=== PATIENT | female | born 2000 | race Caucasian/White ===

== ENCOUNTER 2021-08-12 18:02 | Emergency (ER) | payer SELFPAY ==
[2021-08-12 18:14] VITALS: BP 149/79; PULSE 105; RESP 18; TEMP 36.7; O2SAT 100
[2021-08-12 19:06] LABS: Basophils Absolute Auto 0.1 K/mm3 (0.0-0.1); Basophils Percent Auto 0.8 % (0.2-1.2); Eosinophils Absolute Auto 0.1 K/mm3 (0-0.3); Eosinophils Percent Auto 1.5 % (0-4.4); Hematocrit 31.8 % (37.0-47.0); Hemoglobin 11.1 g/dL (12.0-15.0); Immature Granulocyte Absolute 0.02 K/mm3 (0.00-0.031); Immature Granulocyte Percent A 0.3 % (0-0.5); Lymphocytes Absolute Auto 2.38 K/mm3 (0.9-3.2); Lymphocytes Percent Auto 29.9 % (18.3-44.2); Mean Corpuscular HGB Conc 34.9 g/dl (32-36); Mean Corpuscular Hemoglobin 30.7 pg (26-34); Mean Corpuscular Volume 87.8 fl (80-100); Mean Platelet Volume 8.9 fl (7.4-10.4); Monocytes Absolute Auto 0.6 K/mm3 (0.1-0.6); Monocytes Percent Auto 6.9 % (2.6-8.5); Neutrophils Absolute Auto 4.8 K/mm3 (1.3-6.7); Neutrophils Percent Auto 60.6 % (45.5-73.1); Platelet Count Result 343 k/mm3 (150-375); Red Blood Count 3.62 M/mm3 (4.2-5.4); Red Cell Distribution Width 12.2 % (11.5-14.5)
[2021-08-12] MEDS: SODIUM CHLORIDE 0.9% IV 1,000 ML 999 ML IV CONT (19:06)
[2021-08-12 19:25] LABS: Alanine Aminotransferase 28 U/L (4-35); Alkaline Phosphatase 69 U/L (38-126); Anion Gap 14 mmol/L (8-16); Aspartate Amino Transferase 29 U/L (14-36); Bilirubin,Total 0.3 mg/dL (0.2-1.3); Blood Urea Nitrogen 8 mg/dL (7-17); Calcium 9.5 mg/dL (8.4-10.2); Carbon Dioxide 20 mmol/L (22-30); Chloride 105 mmol/L (98-107); Estimated CRCL calculation 124 ml/min; Estimated Glomerular Filt Rate > 60; Glucose 115 mg/dL (65-110); Potassium 3.4 mmol/L (3.4-5.0); Sodium 139 mmol/L (137-145)
--- NOTE | 2021-08-12 19:43 | ED.GENADULT ---
HPI - General Adult General Chief complaint: Vaginal Bleeding Stated complaint: VB SINCE 3JAN Time Seen by Provider: 08/12/21 18:27 Source: patient Mode of arrival: ambulatory Limitations: no limitations History of Present Illness HPI narrative: Patient is 20-year-old female with chief complaint of vaginal bleeding over the past 2-1/2 weeks. Patient states that she has not started or stopped any control methods. Patient states that she is using 2-3 large pads per day. Patient denies fainting or dizziness. Patient denies pelvic cramping, nausea, vomiting or diarrhea. Patient reports that she made an appointment for [facility] but she has not seen them in the past. She reports her appointment is not until August. She states she decided to not wait until then to see if she could get something to make the bleeding stop. She denies any chance of . She denies vaginal discharge or pain. Related Data Home Medications Medication Instructions Recorded Confirmed No Home Medications 08/12/21 08/12/21 Allergies Allergy/AdvReac Type Severity Reaction Status Date / Time amoxicillin Allergy Unknown Rash Verified 08/12/21 18:27 clavulanic acid Allergy Unknown Rash Verified 08/12/21 18:27 Review of Systems Review of Systems: CONSTITUTIONAL: Denies fever, chills, or sweats. EYES: Denies visual changes, redness, or discharge. ENT: Denies rhinorrhea, congestion, sore throat, or otalgia. CARDIOVASCULAR: Denies chest pain, palpitations, or edema. RESPIRATORY: Denies cough or dyspnea. GASTROINTESTINAL: Denies abdominal pain, nausea, vomiting, or diarrhea. GENITOURINARY: Reports vaginal bleeding denies dysuria or hematuria. SKIN: Denies rash or itching. MUSCULOSKELETAL: Denies back pain, joint pain, or myalgia. NEUROLOGIC: Denies headache, numbness, dizziness, or weakness. PSYCHIATRIC: Denies anxiety or depression. Exam Narrative: GENERAL: Well-appearing, well-nourished, and in no acute distress. HEAD: Normocephalic, atraumatic. EYES: PERRLA and EOMI. CHEST: Clear to auscultation. No respiratory distress. No wheezes rales or rhonchi HEART: Regular rate and rhythm. ABDOMEN: Soft, nontender, nondistended, normal active bowel sounds. EXTREMITIES: Normal range of motion. No edema. PELVIC: Patient refused. SKIN: Warm, dry, no rash. NEURO: No focal deficits. Alert and oriented x3. PSYCH: Normal mood and affect. Course Vital Signs Vital signs: Vital Signs Temperature 98.0 F 08/12/21 18:14 Pulse Rate 105 H 08/12/21 18:14 Respiratory Rate 18 08/12/21 18:14 Blood Pressure 149/79 H 08/12/21 18:14 Pulse Oximetry 100 08/12/21 18:14 Temperature 98.0 F 08/12/21 18:14 Pulse Rate 105 H 08/12/21 18:14 Respiratory Rate 18 08/12/21 18:14 Blood Pressure 149/79 H 08/12/21 18:14 Pulse Oximetry 100 08/12/21 18:14 Medical Decision Making MDM Narrative Medical decision making narrative: Patient's test is negative. Patient declined pelvic exam. Patient again denies vaginal pain or discharge. Patient denies pelvic pain. Patient hemoglobin and hematocrit are low, but stable. Patient's vital signs are stable. She has been instructed to follow-up with [facility] for further evaluation and assistance because of her dysfunctional uterine bleeding. Patient has been instructed to return to emergency department immediately if she has any emergent symptoms, passes very large blood clots are passed or if she has profuse bleeding. Vital Signs Vital Signs: Vital Signs Temperature 98.0 F 08/12/21 18:14 Pulse Rate 105 H 08/12/21 18:14 Respiratory Rate 18 08/12/21 18:14 Blood Pressure 149/79 H 08/12/21 18:14 Pulse Oximetry 100 08/12/21 18:14 Temperature 98.0 F 08/12/21 18:14 Pulse Rate 105 H 08/12/21 18:14 Respiratory Rate 18 08/12/21 18:14 Blood Pressure 149/79 H 08/12/21 18:14 Pulse Oximetry 100 08/12/21 18:14 Lab Data Result diagrams: 08/12/21 18:56
[2021-08-12 20:40] VITALS: BP 126/82; PULSE 90; RESP 16; O2SAT 99
== END 2021-08-12 20:40 | disposition home or self-care (01) ==
PROVIDERS: Emergency Provider Emergency Medicine; PCP Family Medicine
DX: N93.9 Abnormal uterine and vaginal bleeding, unspecified (principal)
CPT/HCPCS: 36415; 80053; 81025; 85025; 86850; 86900; 86901; 96360; 99283; J7030